=== PATIENT | male | born 1970 | race Two or more races ===

== ENCOUNTER 2016-07-25 18:38 | Emergency (ER) | payer MEDICARE, OTHER ==
[~2016-07-25] VITALS: Ht 185.4 cm; Wt 124.7 kg
[~2016-07-25 18:38] MED LIST: APRESOLINE50 MG ORAL; BACTRIM-DS1 EA ORAL; CATAPRES-TTS-31 EA TDERMAL; COZAAR50 MG ORAL; CYCLOBENZAPRINE10 MG ORAL; DIFLUCAN100 MG ORAL; IBUPROFEN600 MG ORAL; NAPROSYN500 M1 ORAL; NKM; NORCO 5-325 TA1 EAC1 ORAL; NORCO 5-325 TA1 EACH ORAL; NORVASC5 MG ORAL; NYSTATIN100000 UN1 ORAL; PHENERGAN SUPP25 MG RECTAL; RANITIDINE HCL150 MG ORAL; ZOFRAN ODT4 MG ORAL
--- NOTE | 2016-07-25 19:01 | Emergency Room Report ---
History of Present Illness General Chief Complaint: Back Pain-No Injury Source: Patient Present Illness HPI The patient is a 45-year-old male with a stated history of sciatica presenting for right lower back pain which radiates down the right leg. The patient states that the pain became much worse today his prior for no known reason. Pain is described as a 9/10 dull ache the pain is worse with walking and bending over. He denies any numbness or tingling. The patient states that he took Motrin and Robaxin which was given to his friend but this has not helped. He denies doing anything that may have provoked this. He denies any other symptoms including nausea, vomiting, fever, chills, chest pain, shortness of breath, abdominal pain, dysuria Allergies: Coded Allergies: No Known Allergies (Unverified , 08/19/13) Patient History Past Medical History: see triage record Pertinent Family History: none Reviewed Nursing Documentation: PMH: Agreed, PSxH: Agreed Nursing Documentation-PMH Hx Cancer: No Hx Gastrointestinal Problems: No Hx Neurological Problems: No Hx Seizures: Yes Review of Systems All Other Systems: negative except mentioned in HPI Physical Exam Vital Signs Date Time Temp Pulse Resp B/P Pulse Ox O2 Delivery O2 Flow Rate FiO2 07/25/16 18:55 97.9 61 16 143/84 99 Room Air Sp02 EP Interpretation: reviewed, normal General Appearance: no apparent distress, alert, GCS 15, non-toxic Head: normocephalic, atraumatic Eyes: bilateral eye PERRL, bilateral eye normal inspection ENT: hearing grossly normal, normal pharynx, no angioedema, normal voice Musculoskeletal: back normal, gait/station normal, normal range of motion, no calf tenderness, tender - R lower back paraspinous muscles and R mid buttock Neurologic: alert, oriented x3, responsive, motor strength/tone normal, sensory intact, normal gait, speech normal Psychiatric: judgement/insight normal, memory normal, mood/affect normal, no suicidal/homicidal ideation Skin: normal color, no rash, warm/dry, well hydrated Lymphatic: no adenopathy Medical Decision Making PA Attestation Dr Truong is my supervising physician. Patient management was discussed with my supervising physician Diagnostic Impression: Primary Impression: Back pain with right-sided radiculopathy ER Course The patient is a 45-year-old male presenting with right lower back pain with radiation down the right leg Differential diagnosis is considered but not limited to: Sciatica, disc herniation, muscle strain, pain medication seeking behavior, among others Physical exam: Vitals are unremarkable. No apparent distress There is tenderness to palpation over the right lumbar paraspinous muscles and right mid buttock. Normal gait. Sensation is intact. No obvious deformity CURES shows no reports The patient is given Toradol IM and [place] and states a slight improvement in pain. The patient discharged home with a prescription for Motrin and [place] for severe pain. He is given instructions to rest and seek referral for physical therapy. ER precautions are given Last Vital Signs Date Time Temp Pulse Resp B/P Pulse Ox O2 Delivery O2 Flow Rate FiO2 07/25/16 18:55 97.9 61 16 143/84 99 Room Air Status: improved Disposition: HOME, SELF-CARE Condition: Improved Scripts Hydrocodone Bit/Acetaminophen 5-325* (NORCO 5-325 TABLET*) 1 Each Tablet 1 TAB ORAL Q6HR Y for For Pain, #15 TAB Prov: RODRIGO SÁNCHEZ P.Galindo 07/25/16 Ibuprofen* (MOTRIN*) 600 Mg Tablet 600 MG ORAL Q6H Y for For Pain, #30 TAB Prov: RODRIGO SÁNCHEZ P.A. 07/25/16 RODRIGO SÁNCHEZ July 25, 2016 19:01
[2016-07-25] MEDS ORDERED: Norco 5mg/325mg tab ORAL ONE ×2 (19:15→19:30)
[2016-07-25] MEDS ORDERED: Ketorolac 30mg Inj IM ONE (19:15)
[2016-07-25] MEDS ORDERED: NORCO 5-325 TA1 EAC1 ORAL (20:15)
[2016-07-25] MEDS ORDERED: IBUPROFEN600 MG ORAL (20:15)
[2016-07-25 20:20] VITALS: BP 143/84
== END 2016-07-25 20:50 | disposition home or self-care (01) ==
LOC: EMR 19:20
DX: M54.41 Lumbago with sciatica, right side (principal)
CPT/HCPCS: 96372; 99284; J1885

== ENCOUNTER 2016-11-07 12:58 | Emergency (ER) | payer MEDICARE, OTHER ==
[~2016-11-07] VITALS: Ht 185.4 cm; Wt 124.7 kg
--- NOTE | 2016-11-07 13:17 | Emergency Room Report ---
History of Present Illness General Chief Complaint: Pain Present Illness HPI 46 YO Male presents to the ED c/O 11/20 pain on the right lower back that radiates down into the right gluteal area and down the posterior right thigh. pt. states intermittent exacerbations where the pain shoots down into the foot with tingling sensation in the lateral two digits of the right foot. pt. denies trauma or fall. pt. reports hx of similar symptoms in the past that last several weeks then resolve. Pt. states he has not followed up with a pcp because his symptoms end up resolving completely for several months. pt. denies fevers, chills, recent spinal procedures, or history of neoplastic disease. Pt has HTN , and hx of AVm in 2008. denies CLAY, imbalance, weakness, or changes to cognition. Denies loss of sensation or gross motor movements of the extremities , incontinence of bowel or bladder. Denies CP, Palpitations, LOC, AMS, dizziness , Changes in Vision, Sensation, paresthesias, or a sudden severe headache. Allergies: Coded Allergies: No Known Allergies (Unverified , 08/19/13) Patient History Past Medical History: see triage record Past Surgical History: none Pertinent Family History: none Reviewed Nursing Documentation: PMH: Agreed, PSxH: Agreed Nursing Documentation-PMH Hx Cancer: No Hx Gastrointestinal Problems: No Hx Neurological Problems: No Hx Seizures: Yes Review of Systems All Other Systems: negative except mentioned in HPI Physical Exam Vital Signs Date Time Temp Pulse Resp B/P (MAP) Pulse Ox O2 Delivery O2 Flow Rate FiO2 11/07/16 13:03 97.9 112 18 157/114 95 Sp02 EP Interpretation: reviewed, normal General Appearance: no apparent distress, alert, GCS 15, non-toxic Head: normocephalic, atraumatic Eyes: bilateral eye normal inspection, bilateral eye PERRL ENT: hearing grossly normal, normal voice Neck: full range of motion Respiratory: lungs clear, normal breath sounds, speaking full sentences Cardiovascular #1: regular rate, rhythm, tachycardia - 112 BPM Gastrointestinal: non tender, soft, no guarding, no pulsatile mass, no rebound Rectal: deferred Genitourinary: normal inspection, no CVA tenderness Musculoskeletal: back normal, gait/station normal, normal range of motion, tender - TTP to the Right Paraspinal lumbar musculature, the right gluteal musculature and the right posterior thigh. Neurologic: alert, oriented x3, responsive, motor strength/tone normal, sensory intact, cerebellar normal, normal gait, speech normal, other - pain with straight leg raise. Psychiatric: judgement/insight normal, memory normal, mood/affect normal Skin: normal color, no rash, warm/dry, well hydrated, other - no erythema, no swelling, no increased LINDA Medical Decision Making PA Attestation Dr. Baker is my supervising Physician whom patient management has been discussed with. Diagnostic Impression: Primary Impression: Back pain with right-sided radiculopathy ER Course 46 YO Male presents to the ED c/O 11/20 pain on the right lower back that radiates down into the right gluteal area and down the posterior right thigh. pt. states intermittent exacerbations where the pain shoots down into the foot with tingling sensation in the lateral two digits of the right foot. pt. denies trauma or fall. pt. reports hx of similar symptoms in the past that last several weeks then resolve. Pt. states he has not followed up with a pcp because his symptoms end up resolving completely for several months. pt. denies fevers, chills, recent spinal procedures, or history of neoplastic disease. Pt has HTN , and hx of AVm in 2008. denies CLAY, imbalance, weakness, or changes to cognition. Denies loss of sensation or gross motor movements of the extremities , incontinence of bowel or bladder. Denies CP, Palpitations, LOC, AMS, dizziness , Changes in Vision, Sensation, paresthesias, or a sudden severe headache. -Pt. reports previous X-rays at [facility] Sp[facility] were WNL. Ddx considered but are not limited to Fracture, dislocation, contusion, epidural abscess, Sprain/Strain/Spasm Vital signs: are WNL, pt. is afebrile H&PE are most consistent with sciatica, and right sided radiculopathy Pt. has pain with straight leg raise. ORDERS: X-ray not required at this time, no spinous process tenderness- pain is located on the right paraspinal musculature. ED INTERVENTIONS: -IM Toradol 15mg. -Soma 350mg Re-Evaluation: pt. states his pain has subsided with ED interventions, he continues to have some tingling in the toes of the right foot. BP has reduced after treatment of pain. I do not suspect an emergent condition at this time. with current presentation pt. is stable for close outpatient follow up. D/w pt. to return to ED with worsening or new symptoms. -D/w pt. importance of PMD follow up and further evaluation as he continues to have recurrent episodes, may require MRI. DISCHARGE: At this time pt. is stable for d/c to home. Will provide printed patient care instructions, and any necessary prescriptions. Care plan and follow up instructions have been discussed with the patient prior to discharge. Last Vital Signs Date Time Temp Pulse Resp B/P (MAP) Pulse Ox O2 Delivery O2 Flow Rate FiO2 11/07/16 13:03 97.9 112 18 157/114 95 Disposition: HOME, SELF-CARE Condition: Stable Scripts Ibuprofen* (MOTRIN*) 600 Mg Tablet 600 MG ORAL THREE TIMES A DAY, #20 TAB 0 Refills Prov: Iliana Moreland 11/07/16 Cyclobenzaprine Hcl* (FLEXERIL*) 10 Mg Tablet 10 MG ORAL THREE TIMES A DAY for 7 Days, #21 TAB Prov: Iliana Moreland 11/07/16 Departure Forms: Return to Work Return to Work Date: Nov 11, 2016 Work Restrictions: No Heavy Lifting, No Prolonged Standing Other Restrictions: light duty x 1 week. Return to Full Activity: Nov 18, 2016 Patient Instructions: Lumbosacral Radiculopathy, Sciatica Additional Instructions: Take medications as directed. Follow up with a Primary Care Provider in 3-5 days, even if your symptoms have resolved. --Please review list of primary care clinics, if you do not already have a primary care provider Return sooner to ED if new symptoms occur, or current symptoms become worse. Do not drink alcohol, drive, or operate heavy machinery while taking [ ] as this may cause drowsiness. - Please note that this Emergency Department Report was dictated using [employer]ualt[employer] refinisher technology software, occasionally this can lead to erroneous entry secondary to interpretation by the dictation equipment. Iliana Moreland Nov 07, 2016 13:17
[2016-11-07 13:24] VITALS: BP 157/114
[2016-11-07] MEDS ORDERED: Ketorolac 60mg Inj IM ONE (13:30)
[2016-11-07] MEDS ORDERED: GABAPENTIN400 MG ORAL (13:33)
[2016-11-07] MEDS ORDERED: KEPPRA500 M4 ORAL (13:33)
[2016-11-07 13:48] VITALS: BP 157/91
[2016-11-07] MEDS ORDERED: CYCLOBENZAPRINE10 MG ORAL (14:08)
[2016-11-07] MEDS ORDERED: IBUPROFEN600 MG ORAL (14:08)
[2016-11-07 14:10] VITALS: BP 136/85
[2016-11-07 14:17] VITALS: BP 136/85
== END 2016-11-07 14:17 | disposition home or self-care (01) ==
LOC: EMR 13:21
DX: M54.10 Radiculopathy, site unspecified (principal); M54.9 Dorsalgia, unspecified; I10 Essential (primary) hypertension
CPT/HCPCS: 96372; 99284

== ENCOUNTER 2016-11-13 19:32 | Emergency (ER) | payer MEDICARE, OTHER ==
[~2016-11-13] VITALS: Ht 185.4 cm; Wt 122.5 kg
[~2016-11-13 19:32] MED LIST changes: +GABAPENTIN400 MG ORAL; +KEPPRA500 M4 ORAL
[2016-11-13 19:45] VITALS: BP 174/100
--- NOTE | 2016-11-13 20:18 | Emergency Room Report ---
History of Present Illness General Chief Complaint: Vomiting Source: Patient Present Illness HPI 46-year-old male no significant past medical history presenting with epigastric pain for one day. Patient states that he has had nausea vomiting and diarrhea, 15 episodes of nonbilious nonbloody vomiting as well as more than 5 episodes of watery diarrhea. This is associated with burning epigastric pain, constant, no relieving or exacerbating factors. Denies any fever or chills. Denies any abdominal surgeries. Patient states that he is a chronic marijuana use or. States that he has had nausea and vomiting about 5 times in the past secondary to marijuana use Allergies: Coded Allergies: MORPHINE (Verified Allergy, Unknown, 11/13/16) Patient History Past Medical History: see triage record Past Surgical History: none Pertinent Family History: none Reviewed Nursing Documentation: PMH: Agreed, PSxH: Agreed Nursing Documentation-PMH Hx Cancer: No Hx Gastrointestinal Problems: No Hx Neurological Problems: No Hx Seizures: Yes Review of Systems All Other Systems: negative except mentioned in HPI Physical Exam Vital Signs Date Time Temp Pulse Resp B/P (MAP) Pulse Ox O2 Delivery O2 Flow Rate FiO2 11/13/16 19:37 98.1 62 20 198/95 99 Room Air Sp02 EP Interpretation: reviewed, normal General Appearance: alert, GCS 15, non-toxic, moderate distress Head: normocephalic, atraumatic Eyes: bilateral eye normal inspection, bilateral eye PERRL, bilateral eye EOMI ENT: normal ENT inspection, normal pharynx, normal voice, moist mucus membranes Neck: normal inspection, full range of motion, supple Respiratory: normal inspection, lungs clear, normal breath sounds, no respiratory distress, no retraction, no wheezing, speaking full sentences, chest symmetrical Cardiovascular #1: normal inspection, regular rate, rhythm, no edema, normal capillary refill Cardiovascular #2: 2+ radial (R), 2+ radial (L) Gastrointestinal: no guarding, other - Mild epigastric tenderness, no rebound tenderness, no guarding, nontender all other quadrants, Hook sign is negative Genitourinary: no CVA tenderness Musculoskeletal: normal inspection, back normal, normal range of motion, non- tender Neurologic: normal inspection, alert, oriented x3, responsive, motor strength/ tone normal, sensory intact, normal gait, speech normal Psychiatric: normal inspection, judgement/insight normal, memory normal Skin: normal inspection, normal color, no rash, warm/dry, well hydrated, normal turgor Medical Decision Making Diagnostic Impression: Primary Impression: Epigastric pain Additional Impression: Nausea vomiting and diarrhea ER Course 46 yo M with abdominal pain one day Differential Diagnosis: Gastritis, gastroenteritis, cholecystitis, appendicitis, diverticulitis, SBO, mesenteric ischemia, cardiac, UTI/pyelo At this time abdomen is soft nontender, not likely to have acute intra- abdominal surgical pathology, will hold CT for now. History and physical more likely to be gastritis or gastroenteritis, possibly secondary to marijuana use Plan: Basic labs Pepcid, maalox, pain control, IVF ER course HD stable during ED stay repeat abd exam, benign no furhter episodes vomiting pt feels better with meds/fluids Disposition: Patient will be discharged to home. Strict return precautions discussed the patient such as severe or persistent pain, intractable nausea or vomiting, black or bloody stools. Otherwise patient is told to followup with his primary care DrDeb within 3 days. Patient is also told to followup with a lacrosse player within one week. Please note that this Emergency Department Report was dictated using [employer]com[employer] car mechanic technology software, occasionally this can lead to erroneous entry secondary to interpretation by the dictation equipment Laboratory Tests Test 11/13/16 19:55 White Blood Count 12.7 K/UL (4.8-10.8) H Red Blood Count 4.78 M/UL (4.70-6.10) Hemoglobin 14.4 G/DL (14.2-18.0) Hematocrit 40.1 % (42.0-52.0) L Mean Corpuscular Volume 84 FL (80-99) Mean Corpuscular Hemoglobin 30.0 PG (27.0-31.0) Mean Corpuscular Hemoglobin Concent 35.8 G/DL (32.0-36.0) Red Cell Distribution Width 11.7 % (11.6-14.8) Platelet Count 236 K/UL (150-450) Mean Platelet Volume 8.1 FL (6.5-10.1) Neutrophils (%) (Auto) % (45.0-75.0) Lymphocytes (%) (Auto) % (20.0-45.0) Monocytes (%) (Auto) % (1.0-10.0) Eosinophils (%) (Auto) % (0.0-3.0) Basophils (%) (Auto) % (0.0-2.0) Differential Total Cells Counted 100 Neutrophils % (Manual) 84 % (45-75) H Lymphocytes % (Manual) 14 % (20-45) L Monocytes % (Manual) 0 % (1-10) L Eosinophils % (Manual) 0 % (0-3) Basophils % (Manual) 0 % (0-2) Band Neutrophils 2 % (0-8) Platelet Estimate Adequate Platelet Morphology Normal Red Blood Cell Morphology Normal Sodium Level 145 mEQ/L (135-145) Potassium Level 3.6 mEQ/L (3.4-4.9) Chloride Level 103 mEQ/L (98-107) Carbon Dioxide Level 22 mEQ/L (20-30) Anion Gap 20 (5-15) H Blood Urea Nitrogen 13 mg/dL (7-23) Creatinine 1.1 mg/dL (0.7-1.2) Estimate Glomerular Filtration Rate > 60 mL/min (>60) Glucose Level 185 mg/dL (74-106) H Calcium Level 9.6 mg/dL (8.6-10.2) Total Bilirubin 0.5 mg/dL (0.0-1.2) Aspartate Amino Transferase (AST) 23 U/L (5-40) Alanine Aminotransferase (ALT) 42 U/L (3-41) H Alkaline Phosphatase 104 U/L (40-129) Total Protein 8.0 g/dL (6.6-8.7) Albumin 5.0 g/dL (3.5-5.2) Globulin 3.0 g/dL Albumin/Globulin Ratio 1.6 (1.0-2.7) Lipase 25 U/L (< 60) Rhythm Strip Diag. Results EP Interpretation: yes Rate: 69 Rhythm: NSR, no PVC's, no ectopy Last Vital Signs Date Time Temp Pulse Resp B/P (MAP) Pulse Ox O2 Delivery O2 Flow Rate FiO2 11/13/16 19:37 98.1 62 20 198/95 99 Room Air Disposition: HOME, SELF-CARE Condition: Improved Scripts Famotidine (PEPCID) 40 Mg Tablet 40 MG PO QHS, #7 TAB 0 Refills Prov: Sera Baumann M.D. 11/13/16 Sera Baumann M.D. Nov 13, 2016 20:18
[2016-11-13 20:26] LABS: MEAN CORPUSCULAR HGB CONC 35.8 G/DL (32.0-36.0); MEAN CORPUSCULAR VOLUME 84 FL (80-99); MEAN PLATELET VOLUME 8.1 FL (6.5-10.1); PLATELET COUNT 236 K/UL (150-450); RED BLOOD COUNT 4.78 M/UL (4.70-6.10); RED CELL DISTRIBUTION WIDTH 11.7 % (11.6-14.8); WHITE BLOOD COUNT 12.7 K/UL (4.8-10.8)
[2016-11-13] MEDS ORDERED: Mylanta II UD 30ml ORAL ONE (20:30)
[2016-11-13] MEDS ORDERED: Famotidine 20 MG/ 2ML VIAL IVP ONE (20:30)
[2016-11-13] MEDS ORDERED: Dicyclomine HCl 10mg/5ml oral soln ORAL ONE (20:30)
[2016-11-13] MEDS ORDERED: Lidocaine 2% Visc 15ml soln ORAL ONE (20:30)
[2016-11-13 20:48] LABS: ALANINE AMINOTRANSFERASE 42 U/L (3-41); ALBUMIN/GLOBULIN RATIO 1.6 (1.0-2.7); ANION GAP 20 (5-15); ASPARTATE AMINO TRANSFERASE 23 U/L (5-40); CALCIUM 9.6 mg/dL (8.6-10.2); CARBON DIOXIDE 22 mEQ/L (20-30); CHLORIDE 103 mEQ/L (98-107); CREATININE 1.1 mg/dL (0.7-1.2); GLOMERULAR FILTRATION RATE > 60 mL/min (>60); HEMOLYSIS 50; LIPASE 25 U/L (< 60); POTASSIUM 3.6 mEQ/L (3.4-4.9); SODIUM 145 mEQ/L (135-145)
[2016-11-13 21:03] LABS: BAND NEUTROPHILS % (MANUAL) 2 % (0-8); LYMPHOCYTES % (MANUAL) 14 % (20-45); NEUTROPHILS % (MANUAL) 84 % (45-75); PLATELET MORPHOLOGY NORMAL; TOTAL CELLS COUNTED 100
[2016-11-13 21:04] LABS: BASOPHILS % (MANUAL) 0 % (0-2); EOSINOPHILS % (MANUAL) 0 % (0-3); PLATELET ESTIMATE ADEQUATE
[2016-11-13] MEDS ORDERED: PEPCID40 MG PO (21:51)
[2016-11-13 22:05] VITALS: BP 137/83
[2016-11-13 22:07] VITALS: BP 137/83
== END 2016-11-13 22:07 | disposition home or self-care (01) ==
LOC: EMR 20:10
DX: R10.13 Epigastric pain (principal); R11.2 Nausea with vomiting, unspecified; R19.7 Diarrhea, unspecified; Z88.6 Allergy status to analgesic agent
CPT/HCPCS: 36415; 80053; 82962; 83690; 85007; 85025; 96374; 96375; 99284; J2405; S0028

== ENCOUNTER 2018-05-23 17:29 | Inpatient (IN) | payer MEDICARE, OTHER ==
[~2018-05-23] VITALS: Ht 185.4 cm; Wt 124.7 kg
[~2018-05-23 17:29] MED LIST changes: +PEPCID40 MG PO
--- NOTE | 2018-05-23 17:52 | Emergency Room Report ---
History of Present Illness General Chief Complaint: Vomiting Source: Patient, Medical Record Present Illness HPI Patient presents with complaints of vomiting and diarrhea Reports that on Monday he had Prydeinig food since then he has had chills with hot and fever type episodes Vomited several times Denies any diarrhea denies any chest pain or short of breath Also has increased burning and epigastric and mid esophageal area Denies any recent travel denies any other trauma patient's family member also had similar food however does not have any symptoms Allergies: Coded Allergies: MORPHINE (Verified Allergy, Unknown, 11/13/16) Patient History Past Medical History: see triage record Pertinent Family History: none Reviewed Nursing Documentation: PMH: Agreed; PSxH: Agreed Nursing Documentation-PMH Past Medical History: No History, Except For Hx Cancer: No Hx Gastrointestinal Problems: No Hx Neurological Problems: No Hx Seizures: Yes Review of Systems All Other Systems: negative except mentioned in HPI Physical Exam Vital Signs Date Time Temp Pulse Resp B/P (MAP) Pulse Ox O2 Delivery O2 Flow Rate FiO2 05/23/18 17:33 98.2 104 18 143/82 96 Room Air Sp02 EP Interpretation: reviewed, normal General Appearance: well appearing, no apparent distress Head: normocephalic, atraumatic Eyes: bilateral eye PERRL, bilateral eye EOMI ENT: hearing grossly normal, normal pharynx, TMs + canals normal, uvula midline Neck: full range of motion, supple, no meningismus, no bony tend Respiratory: lungs clear, normal breath sounds, no rhonchi, no respiratory distress, no retraction, no accessory muscle use Cardiovascular #1: normal peripheral pulses, regular rate, rhythm, no edema, no gallop, no JVD, no murmur Gastrointestinal: normal bowel sounds, non tender, soft, no mass, no organomegaly, non-distended, no guarding, no hernia, no pulsatile mass, no rebound Genitourinary: no CVA tenderness Musculoskeletal: normal inspection Neurologic: oriented x3, responsive, self sealing fuel tank repairer III-XII nml as tested, motor strength/ tone normal, sensory intact Psychiatric: mood/affect normal Skin: normal color, no rash, warm/dry, palpation normal Lymphatic: normal inspection, no adenopathy Medical Decision Making Diagnostic Impression: Primary Impression: Vomiting Additional Impressions: Abdominal pain Leukocytosis ER Course With the history exam and presentation, multiple differentials considered, including but not limited to appendicitis, gastritis, cholecystitis, diverticulitis Patient had done somewhat better however again becomes nauseated Patient's white blood cell count is elevated Patient has had marijuana abuse in the past with leukocytosis Further CT imaging was not obtained as the patient's abdomen remains soft However given the elevated white blood cell count and the patient's discomfort he was admitted for further inpatient care Labs Test 05/23/18 18:15 05/23/18 19:40 05/24/18 06:26 05/25/18 06:00 White Blood Count 19.0 K/UL (4.8-10.8) 12.7 K/UL (4.8-10.8) 11.9 K/UL (4.8-10.8) Red Blood Count 5.52 M/UL (4.70-6.10) 5.39 M/UL (4.70-6.10) 5.15 M/UL (4.70-6.10) Hemoglobin 16.0 G/DL (14.2-18.0) 15.5 G/DL (14.2-18.0) 14.8 G/DL (14.2-18.0) Hematocrit 47.3 % (42.0-52.0) 45.9 % (42.0-52.0) 43.7 % (42.0-52.0) Mean Corpuscular Volume 86 FL (80-99) 85 FL (80-99) 85 FL (80-99) Mean Corpuscular Hemoglobin 29.0 PG (27.0-31.0) 28.7 PG (27.0-31.0) 28.8 PG (27.0-31.0) Mean Corpuscular Hemoglobin Concent 33.9 G/DL (32.0-36.0) 33.7 G/DL (32.0-36.0) 34.0 G/DL (32.0-36.0) Red Cell Distribution Width 11.8 % (11.6-14.8) 12.2 % (11.6-14.8) 11.8 % (11.6-14.8) Platelet Count 221 K/UL (150-450) 174 K/UL (150-450) 189 K/UL (150-450) Mean Platelet Volume 8.9 FL (6.5-10.1) 8.8 FL (6.5-10.1) 9.7 FL (6.5-10.1) Neutrophils (%) (Auto) % (45.0-75.0) 64.6 % (45.0-75.0) 54.5 % (45.0-75.0) Lymphocytes (%) (Auto) % (20.0-45.0) 24.6 % (20.0-45.0) 34.7 % (20.0-45.0) Monocytes (%) (Auto) % (1.0-10.0) 9.5 % (1.0-10.0) 8.9 % (1.0-10.0) Eosinophils (%) (Auto) % (0.0-3.0) 0.1 % (0.0-3.0) 0.8 % (0.0-3.0) Basophils (%) (Auto) % (0.0-2.0) 1.2 % (0.0-2.0) 1.2 % (0.0-2.0) Differential Total Cells Counted 100 Neutrophils % (Manual) 83 % (45-75) Lymphocytes % (Manual) 10 % (20-45) Monocytes % (Manual) 7 % (1-10) Eosinophils % (Manual) 0 % (0-3) Basophils % (Manual) 0 % (0-2) Band Neutrophils 0 % (0-8) Reactive Lymphocytes 2+ Platelet Estimate Adequate Platelet Morphology Normal Polychromasia 1+ Anisocytosis 1+ Sodium Level 140 MMOL/L (136-145) 136 MMOL/L (136-145) 140 MMOL/L (136-145) Potassium Level 2.8 MMOL/L (3.5-5.1) 3.1 MMOL/L (3.5-5.1) 3.5 MMOL/L (3.5-5.1) Chloride Level 96 MMOL/L (98-107) 101 MMOL/L (98-107) 105 MMOL/L (98-107) Carbon Dioxide Level 31 MMOL/L (21-32) 27 MMOL/L (21-32) 30 MMOL/L (21-32) Anion Gap 13 mmol/L (5-15) 8 mmol/L (5-15) 5 mmol/L (5-15) Blood Urea Nitrogen 18 mg/dL (7-18) 17 mg/dL (7-18) 11 mg/dL (7-18) Creatinine 1.4 MG/DL (0.55-1.30) 1.4 MG/DL (0.55-1.30) 1.2 MG/DL (0.55-1.30) Estimat Glomerular Filtration Rate > 60 mL/min (>60) > 60 mL/min (>60) > 60 mL/min (>60) Glucose Level 119 MG/DL (74-106) 159 MG/DL (74-106) 106 MG/DL (74-106) Calcium Level 9.4 MG/DL (8.5-10.1) 8.3 MG/DL (8.5-10.1) 8.4 MG/DL (8.5-10.1) Total Bilirubin 0.8 MG/DL (0.2-1.0) 0.7 MG/DL (0.2-1.0) 0.6 MG/DL (0.2-1.0) Aspartate Amino Transf (AST/SGOT) 29 U/L (15-37) 26 U/L (15-37) 16 U/L (15-37) Alanine Aminotransferase (ALT/SGPT) 59 U/L (12-78) 48 U/L (12-78) 39 U/L (12-78) Alkaline Phosphatase 107 U/L (46-116) 91 U/L (46-116) 89 U/L (46-116) Total Protein 8.0 G/DL (6.4-8.2) 6.8 G/DL (6.4-8.2) 6.3 G/DL (6.4-8.2) Albumin 4.3 G/DL (3.4-5.0) 3.4 G/DL (3.4-5.0) 3.3 G/DL (3.4-5.0) Globulin 3.7 g/dL 3.4 g/dL 3.0 g/dL Albumin/Globulin Ratio 1.2 (1.0-2.7) 1.0 (1.0-2.7) 1.1 (1.0-2.7) Lipase 139 U/L (73-393) Urine Color Pale yellow Urine Appearance Clear Urine pH 7 (4.5-8.0) Urine Specific [place] 1.010 (1.005-1.035) Urine Protein 2+ (NEGATIVE) Urine Glucose (UA) Negative (NEGATIVE) Urine Ketones 2+ (NEGATIVE) Urine Blood Negative (NEGATIVE) Urine Nitrite Negative (NEGATIVE) Urine Bilirubin Negative (NEGATIVE) Urine Urobilinogen Normal MG/DL (0.0-1.0) Urine Leukocyte Esterase Negative (NEGATIVE) Urine RBC 0-2 /HPF (0 - 0) Urine WBC 0-2 /HPF (0 - 0) Urine Squamous Epithelial Cells None /LPF (NONE/OCC) Urine Bacteria Few /HPF (NONE) Urine Opiates Screen Negative (NEGATIVE) Urine Barbiturates Screen Negative (NEGATIVE) Phencyclidine (PCP) Screen Negative (NEGATIVE) Urine Amphetamines Screen Negative (NEGATIVE) Urine Benzodiazepines Screen Negative (NEGATIVE) Urine Cocaine Screen Negative (NEGATIVE) Urine Marijuana (THC) Screen Positive (NEGATIVE) Phosphorus Level 3.3 MG/DL (2.5-4.9) 3.8 MG/DL (2.5-4.9) Magnesium Level 1.6 MG/DL (1.8-2.4) 2.0 MG/DL (1.8-2.4) C-Reactive Protein, Quantitative < 0.4 mg/dL (0.00-0.90) Hemoglobin A1c 6.1 % (4.3-6.0) Uric Acid 5.5 MG/DL (2.6-7.2) Gamma Glutamyl Transpeptidase 16 U/L (5-85) Pro-B-Type Natriuretic Peptide 17 pg/mL (0-125) Triglycerides Level 60 MG/DL (30-150) Cholesterol Level 152 MG/DL (< 200) LDL Cholesterol 106 mg/dL (<100) HDL Cholesterol 37 MG/DL (40-60) Cholesterol/HDL Ratio 4.1 (3.3-4.4) Thyroid Stimulating Hormone (TSH) 1.443 uiU/mL (0.358-3.740) Last Vital Signs Date Time Temp Pulse Resp B/P (MAP) Pulse Ox O2 Delivery O2 Flow Rate FiO2 05/23/18 17:33 98.2 104 18 143/82 96 Room Air Status: improved Disposition: ADMITTED INPATIENT Condition: Serious Destin Baker DO May 23, 2018 17:52
[2018-05-23 18:00] VITALS: BP 133/82
--- NOTE | 2018-05-23 18:00 | NUR ---
ED Nurse Note: pt walked in to ER c/o abdominal pain 10/20 and N/V/D since monday. pt aao x4, calm and cooperative. skin clean and intact.
[2018-05-23 18:33] LABS: HEMATOCRIT 47.3 % (42.0-52.0); MEAN CORPUSCULAR VOLUME 86 FL (80-99); PLATELET COUNT 221 K/UL (150-450); RED BLOOD COUNT 5.52 M/UL (4.70-6.10); RED CELL DISTRIBUTION WIDTH 11.8 % (11.6-14.8)
[2018-05-23 18:45] LABS: ANION GAP 13 mmol/L (5-15); BLOOD UREA NITROGEN 18 mg/dL (7-18); CALCIUM 9.4 MG/DL (8.5-10.1); CARBON DIOXIDE 31 MMOL/L (21-32); CHLORIDE 96 MMOL/L (98-107); CREATININE 1.4 MG/DL (0.55-1.30); POTASSIUM 2.8 MMOL/L (3.5-5.1); SODIUM 140 MMOL/L (136-145)
[2018-05-23 18:49] LABS: ALANINE AMINOTRANSFERASE 59 U/L (12-78); ALBUMIN 4.3 G/DL (3.4-5.0); ALBUMIN/GLOBULIN RATIO 1.2 (1.0-2.7); ALKALINE PHOSPHATASE 107 U/L (46-116); ASPARTATE AMINO TRANSFERASE 29 U/L (15-37); BILIRUBIN,TOTAL 0.8 MG/DL (0.2-1.0)
--- NOTE | 2018-05-23 19:10 | NUR ---
ED Nurse Note: Received pt and report from day shift. Knowing Pt will admit and needs to collect urine. Will prepare as soon.
--- NOTE | 2018-05-23 19:17 | NUR ---
HAND-OFF: Report given to ALEXANDRIA Quiroz. pt was told to urinate in urinal. IV ATB won't initiate until urine sample obtained. pt verbalized understanding.
[2018-05-23] MEDS ORDERED: Lidocaine 2% Visc 15ml soln ORAL ONE (19:45)
[2018-05-23] MEDS ORDERED: Mylanta II UD 30ml ORAL ONE (19:45)
[2018-05-23] MEDS ORDERED: Dicyclomine HCl 10mg/5ml oral soln ORAL ONE (19:45)
[2018-05-23 19:51] LABS: APPEARANCE,URINE CLEAR; BILIRUBIN, URINE NEGATIVE (NEGATIVE); COLOR,URINE PALE YELLOW; GLUCOSE, URINE (UA) NEGATIVE (NEGATIVE); KETONES,URINE 2+ (NEGATIVE); LEUKOCYTE ESTERASE ,URINE NEGATIVE (NEGATIVE); NITRITE,URINE NEGATIVE (NEGATIVE); PH,URINE 7 (4.5-8.0); PROTEIN,URINE 2+ (NEGATIVE); UROBILINOGEN,URINE NORMAL MG/DL (0.0-1.0)
[2018-05-23 21:30] VITALS: BP 127/78
--- NOTE | 2018-05-23 21:32 | NUR ---
ED Nurse Note: Pt admit to 3E room 314-2. Report and belongings given to ALEXANDRIA Lopez. Pt is AO x 4times, VSS, on room air no distress.
--- NOTE | 2018-05-23 21:40 | NUR ---
NURSE NOTES: Received pt from [place] via [facility], pt ambulated from [email or web address] to bed with unsteady gait uses cane to ambulate. Pt is AOX4, c/o abdominal pain 5/10, denies any nausea or vomiting at this time. Admit pt to floor. Safety measures maintained. Bed in lowest position, locked and side rails up x 2 and padded, call light within reach. Will continue to monitor.
--- NOTE | 2018-05-23 22:20 | NUR ---
NURSE NOTES: Paged business control manager for Dr. Ramirez, awaiting for call back.
--- NOTE | 2018-05-23 23:00 | NUR ---
NURSE NOTES: Dr. Anderson entered admission orders. Will carry out orders.
[2018-05-24] VITALS: BP 121/72
[2018-05-24] MEDS: D5 1/2NS w/KCl 20mEq 1,000 ML IV SCH ×2 (00:02→09:03)
[2018-05-24 06:00] VITALS: BP 141/78
--- NOTE | 2018-05-24 07:29 | NUR ---
HAND-OFF: Report given to ALEXANDRIA Oneill. Pt in stable condition.
--- NOTE | 2018-05-24 07:30 | NUR ---
NURSE NOTES: WALKING ROUNDS DONE WITH OUTGOING RN. PATIENT AWAKE IN BED. QUESTIONS ANSWERED. NEEDS MET AT THIS TIME.DISCUSSED PLAN OF CARE FOR THE DAY.VERBALIZED UNDERSTANDING. DENIES NAUSEA. CALL LIGHT WITHIN REACH.BED IN LOW AND LOCKED POSITION.
[2018-05-24 07:41] LABS: BASOPHILS % (AUTO) 1.2 % (0.0-2.0); EOSINOPHILS % (AUTO) 0.1 % (0.0-3.0); HEMATOCRIT 45.9 % (42.0-52.0); HEMOGLOBIN 15.5 G/DL (14.2-18.0); LYMPHOCYTES % (AUTO) 24.6 % (20.0-45.0); MEAN CORPUSCULAR VOLUME 85 FL (80-99); MONOCYTES % (AUTO) 9.5 % (1.0-10.0); NEUTROPHILS % (AUTO) 64.6 % (45.0-75.0); PLATELET COUNT 174 K/UL (150-450); RED BLOOD COUNT 5.39 M/UL (4.70-6.10); RED CELL DISTRIBUTION WIDTH 12.2 % (11.6-14.8); WHITE BLOOD COUNT 12.7 K/UL (4.8-10.8)
[2018-05-24 07:47] LABS: ALANINE AMINOTRANSFERASE 48 U/L (12-78); ALBUMIN 3.4 G/DL (3.4-5.0); ALKALINE PHOSPHATASE 91 U/L (46-116); ANION GAP 8 mmol/L (5-15); ASPARTATE AMINO TRANSFERASE 26 U/L (15-37); BILIRUBIN,TOTAL 0.7 MG/DL (0.2-1.0); BLOOD UREA NITROGEN 17 mg/dL (7-18); CALCIUM 8.3 MG/DL (8.5-10.1); CARBON DIOXIDE 27 MMOL/L (21-32); CHLORIDE 101 MMOL/L (98-107); CREATININE 1.4 MG/DL (0.55-1.30); POTASSIUM 3.1 MMOL/L (3.5-5.1); SODIUM 136 MMOL/L (136-145)
[2018-05-24 08:00] VITALS: BP 136/76
--- NOTE | 2018-05-24 08:41 | History and Physical ---
History of Present Illness General Date patient seen: May 24, 2018 Reason for Hospitalization: Vomiting Present Illness HPI 47 year old male with PMH of HTn, epilepsy presented with complaints of nausea, vomiting and diarrhea x 3 day, states he are sinhal[place] food on monday and soon after developed chills fevers and vomiting. Denies and sick contacts or recent travel, fever has resolved. Allergies: Coded Allergies: MORPHINE (Verified Allergy, Unknown, 11/13/16) Medication History Scheduled Amlodipine Besylate (Norvasc), 10 MG ORAL DAILY Clonidine HCl (Catapres-Tts 3), 1 PATCH TDERMAL QWEEK Cyclobenzaprine Hcl* (Flexeril*), 10 MG ORAL THREE TIMES A DAY Famotidine (Pepcid), 40 MG PO QHS Fluconazole* (Diflucan*), 200 MG ORAL DAILY Gabapentin* (Gabapentin*), Unknown Dose ORAL TWICE A DAY, (Reported) Hydralazine HCl (Hydralazine HCl), 100 MG ORAL Q12HR Ibuprofen* (Motrin*), 600 MG ORAL THREE TIMES A DAY Levetiracetam (Keppra), Unknown Dose ORAL EVERY 12 HOURS, (Reported) Losartan Potassium* (Cozaar*), 100 MG ORAL DAILY Naproxen* (Naprosyn*), 500 MG ORAL TWICE A DAY Nystatin* (Nystatin*), 5 ML ORAL FOUR TIMES A DAY Ranitidine Hcl* (Zantac*), 150 MG ORAL TWICE A DAY Scheduled PRN Cyclobenzaprine Hcl* (Flexeril*), 10 MG ORAL BID PRN for Muscle Spasm Hydrocodone Bit/Acetaminophen 5-325* ([place] 5-325 Tablet*), 1 TAB ORAL Q6HR PRN for For Pain Hydrocodone Bit/Acetaminophen 5-325* ([place] 5-325*), 1 TAB ORAL Q6H PRN for For Pain Hydrocodone Bit/Acetaminophen 5-325* ([place] 5-325 Tablet*), 1 TAB ORAL Q6HR PRN for For Pain Ibuprofen* (Motrin*), 600 MG ORAL Q6H PRN for For Pain Ondansetron Odt* (Zofran Odt*), 4 MG ORAL Q6H PRN for Nausea & Vomiting Ondansetron Odt* (Zofran Odt*), 4 MG ORAL Q6H PRN for Nausea & Vomiting Ondansetron Odt* (Zofran Odt*), 4 MG ORAL Q6H PRN for Nausea & Vomiting Ondansetron Odt* (Zofran Odt*), 4 MG ORAL Q6H PRN for Nausea & Vomiting Promethazine HCl (Promethegan), 25 MG RECTAL Q6H PRN for Nausea & Vomiting Patient History History Provided By: Patient, Medical Record Healthcare decision maker Resuscitation status Full Code Advanced Directive on File No Review of Systems Constitutional: Reports: no symptoms Eye: Reports: no symptoms ENT: Reports: no symptoms Respiratory: Reports: no symptoms Cardiovascular: Reports: no symptoms Gastrointestinal: Reports: abdominal pain, diarrhea, nausea, vomiting Genitourinary: Reports: no symptoms Musculoskeletal: Reports: no symptoms Skin: Reports: no symptoms Psychiatric: Reports: no symptoms Neurological: Reports: no symptoms Endocrine: Reports: no symptoms Hematologic/Lymphatic: Reports: no symptoms Physical Exam General Appearance: WD/WN, no apparent distress, alert Lines, tubes and drains: peripheral HEENT: normocephalic, atraumatic, anicteric, mucous membranes moist Neck: non-tender, normal alignment, supple Respiratory/Chest: chest wall non-tender, lungs clear, normal breath sounds, no respiratory distress, no accessory muscle use Cardiovascular/Chest: normal peripheral pulses, normal rate, regular rhythm, no gallop/murmur Abdomen: normal bowel sounds, non tender, soft, no organomegaly Extremities: normal range of motion, non-tender, normal inspection, no calf tenderness Skin Exam: normal pigmentation Neurologic: small offset printer II-XII grossly normal Musculoskeletal: normal muscle bulk Last 24 Hour Vital Signs Date Time Temp Pulse Resp B/P (MAP) Pulse Ox O2 Delivery O2 Flow Rate FiO2 05/24/18 08:34 72 136/76 05/24/18 06:00 98.2 73 18 141/78 (99) 96 05/24/18 00:00 98.4 68 18 121/72 (88) 95 05/23/18 21:51 Room Air 05/23/18 21:37 98.0 81 17 127/78 98 Room Air 05/23/18 21:30 98.0 81 17 127/78 98 Room Air 05/23/18 18:00 97 21 Room Air 05/23/18 18:00 98.2 98 18 133/82 96 Room Air 05/23/18 17:33 98.2 104 18 143/82 96 Room Air Intake and Output 05/23/18 05/24/18 19:00 07:00 Intake Total 1000 ml 970 ml Output Total 700 ml Balance 1000 ml 270 ml Intake Oral 0 ml 120 ml IV Total 1000 ml 850 ml Output Urine Total 700 ml Laboratory Tests Test 05/23/18 18:15 05/23/18 19:40 05/24/18 06:26 White Blood Count 19.0 K/UL (4.8-10.8) H 12.7 K/UL (4.8-10.8) H Red Blood Count 5.52 M/UL (4.70-6.10) 5.39 M/UL (4.70-6.10) Hemoglobin 16.0 G/DL (14.2-18.0) 15.5 G/DL (14.2-18.0) Hematocrit 47.3 % (42.0-52.0) 45.9 % (42.0-52.0) Mean Corpuscular Volume 86 FL (80-99) 85 FL (80-99) Mean Corpuscular Hemoglobin 29.0 PG (27.0-31.0) 28.7 PG (27.0-31.0) Mean Corpuscular Hemoglobin Concent 33.9 G/DL (32.0-36.0) 33.7 G/DL (32.0-36.0) Red Cell Distribution Width 11.8 % (11.6-14.8) 12.2 % (11.6-14.8) Platelet Count 221 K/UL (150-450) 174 K/UL (150-450) Mean Platelet Volume 8.9 FL (6.5-10.1) 8.8 FL (6.5-10.1) Neutrophils (%) (Auto) % (45.0-75.0) 64.6 % (45.0-75.0) Lymphocytes (%) (Auto) % (20.0-45.0) 24.6 % (20.0-45.0) Monocytes (%) (Auto) % (1.0-10.0) 9.5 % (1.0-10.0) Eosinophils (%) (Auto) % (0.0-3.0) 0.1 % (0.0-3.0) Basophils (%) (Auto) % (0.0-2.0) 1.2 % (0.0-2.0) Differential Total Cells Counted 100 Neutrophils % (Manual) 83 % (45-75) H Lymphocytes % (Manual) 10 % (20-45) L Monocytes % (Manual) 7 % (1-10) Eosinophils % (Manual) 0 % (0-3) Basophils % (Manual) 0 % (0-2) Band Neutrophils 0 % (0-8) Reactive Lymphocytes 2+ Platelet Estimate Adequate Platelet Morphology Normal Polychromasia 1+ Anisocytosis 1+ Sodium Level 140 MMOL/L (136-145) 136 MMOL/L (136-145) Potassium Level 2.8 MMOL/L (3.5-5.1) L 3.1 MMOL/L (3.5-5.1) L Chloride Level 96 MMOL/L (98-107) L 101 MMOL/L (98-107) Carbon Dioxide Level 31 MMOL/L (21-32) 27 MMOL/L (21-32) Anion Gap 13 mmol/L (5-15) 8 mmol/L (5-15) Blood Urea Nitrogen 18 mg/dL (7-18) 17 mg/dL (7-18) Creatinine 1.4 MG/DL (0.55-1.30) H 1.4 MG/DL (0.55-1.30) H Estimat Glomerular Filtration Rate > 60 mL/min (>60) > 60 mL/min (>60) Glucose Level 119 MG/DL (74-106) H 159 MG/DL (74-106) H Calcium Level 9.4 MG/DL (8.5-10.1) 8.3 MG/DL (8.5-10.1) L Total Bilirubin 0.8 MG/DL (0.2-1.0) 0.7 MG/DL (0.2-1.0) Aspartate Amino Transf (AST/SGOT) 29 U/L (15-37) 26 U/L (15-37) Alanine Aminotransferase (ALT/SGPT) 59 U/L (12-78) 48 U/L (12-78) Alkaline Phosphatase 107 U/L (46-116) 91 U/L (46-116) Total Protein 8.0 G/DL (6.4-8.2) 6.8 G/DL (6.4-8.2) Albumin 4.3 G/DL (3.4-5.0) 3.4 G/DL (3.4-5.0) Globulin 3.7 g/dL 3.4 g/dL Albumin/Globulin Ratio 1.2 (1.0-2.7) 1.0 (1.0-2.7) Lipase 139 U/L (73-393) Urine Color Pale yellow Urine Appearance Clear Urine pH 7 (4.5-8.0) Urine Specific [place] 1.010 (1.005-1.035) Urine Protein 2+ (NEGATIVE) H Urine Glucose (UA) Negative (NEGATIVE) Urine Ketones 2+ (NEGATIVE) H Urine Blood Negative (NEGATIVE) Urine Nitrite Negative (NEGATIVE) Urine Bilirubin Negative (NEGATIVE) Urine Urobilinogen Normal MG/DL (0.0-1.0) Urine Leukocyte Esterase Negative (NEGATIVE) Urine RBC 0-2 /HPF (0 - 0) H Urine WBC 0-2 /HPF (0 - 0) Urine Squamous Epithelial Cells None /LPF (NONE/OCC) Urine Bacteria Few /HPF (NONE) Urine Opiates Screen Negative (NEGATIVE) Urine Barbiturates Screen Negative (NEGATIVE) Phencyclidine (PCP) Screen Negative (NEGATIVE) Urine Amphetamines Screen Negative (NEGATIVE) Urine Benzodiazepines Screen Negative (NEGATIVE) Urine Cocaine Screen Negative (NEGATIVE) Urine Marijuana (THC) Screen Positive (NEGATIVE) H Phosphorus Level 3.3 MG/DL (2.5-4.9) Magnesium Level 1.6 MG/DL (1.8-2.4) L Height (Feet): 6 Height (Inches): 1.00 Weight (Pounds): 275 Medications Current Medications Medications (Trade) Dose Ordered Sig/Purvi Route PRN Reason Start Time Stop Time Status Last Admin Dose Admin Acetaminophen (Tylenol) 650 mg Q4H PRN ORAL Mild Pain (Pain Scale 1-3) 05/23/18 23:15 06/22/18 23:14 05/24/18 05:57 Amlodipine Besylate (Norvasc) 10 mg DAILY ORAL 05/24/18 09:00 06/23/18 08:59 05/24/18 08:34 Ciprofloxacin 200 ml @ 200 mls/hr Q12HR IVPB 05/24/18 09:00 05/31/18 08:59 Dextrose (Dextrose 50%) 25 ml Q30M PRN IV Hypoglycemia 05/23/18 23:15 06/22/18 23:14 Dextrose (Dextrose 50%) 50 ml Q30M PRN IV Hypoglycemia 05/23/18 23:15 06/22/18 23:14 Dextrose/ Electrolytes 1,000 ml @ 125 mls/hr Q8H IV 05/24/18 00:04 06/23/18 00:03 05/24/18 00:02 Levetiracetam (Keppra) 500 mg EVERY 12 HOURS ORAL 05/24/18 09:00 06/23/18 08:59 05/24/18 08:34 Metronidazole 100 ml @ 100 mls/hr Q8HR IVPB 05/24/18 06:00 05/31/18 05:59 05/24/18 05:49 Ondansetron HCl (Zofran) 4 mg Q4H PRN IVP Nausea & Vomiting 05/23/18 23:15 06/22/18 23:14 05/24/18 06:00 Pantoprazole (Protonix) 40 mg DAILY IV 05/24/18 09:00 06/23/18 08:59 05/24/18 08:33 Prochlorperazine (Compazine) 10 mg Q6H PRN IVP Nausea & Vomiting 05/23/18 23:15 06/22/18 23:14 05/24/18 08:34 Assessment/Plan Status: stable Assessment/Plan 47 year old male with PMH of HTn, epilepsy presented with complaints of nausea, vomiting and diarrhea x 3 day admitted for gastroenteritis #Vomiting and diarrhea likley 2/2 infectious Gastroenteritis -cont flagyl and cipro -IV hydration -Zofran PRN -f/u stool studies -ID consult appreciated #SARAH likely 2/2 dehydration #Hypokalemia #Hypomag -Hydration -CTM -Avoid renal toxic medications -replete electrolytes PRN -Renal consult appreciated I spent 75 min on this patients care, and 40 min was dedicated to counseling and /or care coordination Maru Gibbs MD May 24, 2018 08:41
[2018-05-24] MEDS ORDERED: Cyclobenzaprine 10mg Tab ORAL PRN (09:00)
[2018-05-24] MEDS ORDERED: HydrALAZINE 50mg tab ORAL SCH ×3 (09:00→21:00)
[2018-05-24] MEDS ORDERED: Pantoprazole Inj IV SCH (09:00)
--- NOTE | 2018-05-24 09:36 | NUR ---
CASE MANAGEMENT:REVIEW 47 YR OLD MALE FROM HOME CC: VOMITING AND ABDOMINAL PAIN SINCE MONDAY SI: SEPSIS.N/V/D 98.2 104 18 143/82 96% ON RA WBC+19.0 K-2.8 GLUCOSE+119 URINE(+) THC IS: 1L NS BOLUS X1 IV PEPCID X1 IV CIPRO X1 : TO MED/SURG [facility]
[2018-05-24 12:00] VITALS: BP 122/84
--- NOTE | 2018-05-24 12:49 | Infectious Diseases Prog Note ---
Assessment/Plan Assessment/Plan Full consult dictated: A) 1) n/v, abdominal pain, ? sepsis, leukocytosis, no fevers, ? viral gastroenteritis, ? infectious diarrhea/c.diff. 2) AVM hx, hx sz 3) allergies - morphine P) 1) cipro and flagyl 2) iv fluids 3) f/u on stool studies and labs 4) thank you Subjective Allergies: Coded Allergies: MORPHINE (Verified Allergy, Unknown, 11/13/16) Objective Vital Signs Last 24 Hour Vital Signs Date Time Temp Pulse Resp B/P (MAP) Pulse Ox O2 Delivery O2 Flow Rate FiO2 05/24/18 12:00 97.4 67 18 122/84 (97) 97 05/24/18 11:35 136/76 05/24/18 09:00 Room Air 05/24/18 08:34 72 136/76 05/24/18 08:00 98.3 72 18 136/76 (96) 98 05/24/18 06:00 98.2 73 18 141/78 (99) 96 05/24/18 00:00 98.4 68 18 121/72 (88) 95 05/23/18 21:51 Room Air 05/23/18 21:37 98.0 81 17 127/78 98 Room Air 05/23/18 21:30 98.0 81 17 127/78 98 Room Air 05/23/18 18:00 97 21 Room Air 05/23/18 18:00 98.2 98 18 133/82 96 Room Air 05/23/18 17:33 98.2 104 18 143/82 96 Room Air Height (Feet): 6 Height (Inches): 1.00 Weight (Pounds): 275 Laboratory Tests Test 05/23/18 18:15 05/23/18 19:40 05/24/18 06:26 White Blood Count 19.0 K/UL (4.8-10.8) H 12.7 K/UL (4.8-10.8) H Red Blood Count 5.52 M/UL (4.70-6.10) 5.39 M/UL (4.70-6.10) Hemoglobin 16.0 G/DL (14.2-18.0) 15.5 G/DL (14.2-18.0) Hematocrit 47.3 % (42.0-52.0) 45.9 % (42.0-52.0) Mean Corpuscular Volume 86 FL (80-99) 85 FL (80-99) Mean Corpuscular Hemoglobin 29.0 PG (27.0-31.0) 28.7 PG (27.0-31.0) Mean Corpuscular Hemoglobin Concent 33.9 G/DL (32.0-36.0) 33.7 G/DL (32.0-36.0) Red Cell Distribution Width 11.8 % (11.6-14.8) 12.2 % (11.6-14.8) Platelet Count 221 K/UL (150-450) 174 K/UL (150-450) Mean Platelet Volume 8.9 FL (6.5-10.1) 8.8 FL (6.5-10.1) Neutrophils (%) (Auto) % (45.0-75.0) 64.6 % (45.0-75.0) Lymphocytes (%) (Auto) % (20.0-45.0) 24.6 % (20.0-45.0) Monocytes (%) (Auto) % (1.0-10.0) 9.5 % (1.0-10.0) Eosinophils (%) (Auto) % (0.0-3.0) 0.1 % (0.0-3.0) Basophils (%) (Auto) % (0.0-2.0) 1.2 % (0.0-2.0) Differential Total Cells Counted 100 Neutrophils % (Manual) 83 % (45-75) H Lymphocytes % (Manual) 10 % (20-45) L Monocytes % (Manual) 7 % (1-10) Eosinophils % (Manual) 0 % (0-3) Basophils % (Manual) 0 % (0-2) Band Neutrophils 0 % (0-8) Reactive Lymphocytes 2+ Platelet Estimate Adequate Platelet Morphology Normal Polychromasia 1+ Anisocytosis 1+ Sodium Level 140 MMOL/L (136-145) 136 MMOL/L (136-145) Potassium Level 2.8 MMOL/L (3.5-5.1) L 3.1 MMOL/L (3.5-5.1) L Chloride Level 96 MMOL/L (98-107) L 101 MMOL/L (98-107) Carbon Dioxide Level 31 MMOL/L (21-32) 27 MMOL/L (21-32) Anion Gap 13 mmol/L (5-15) 8 mmol/L (5-15) Blood Urea Nitrogen 18 mg/dL (7-18) 17 mg/dL (7-18) Creatinine 1.4 MG/DL (0.55-1.30) H 1.4 MG/DL (0.55-1.30) H Estimat Glomerular Filtration Rate > 60 mL/min (>60) > 60 mL/min (>60) Glucose Level 119 MG/DL (74-106) H 159 MG/DL (74-106) H Calcium Level 9.4 MG/DL (8.5-10.1) 8.3 MG/DL (8.5-10.1) L Total Bilirubin 0.8 MG/DL (0.2-1.0) 0.7 MG/DL (0.2-1.0) Aspartate Amino Transf (AST/SGOT) 29 U/L (15-37) 26 U/L (15-37) Alanine Aminotransferase (ALT/SGPT) 59 U/L (12-78) 48 U/L (12-78) Alkaline Phosphatase 107 U/L (46-116) 91 U/L (46-116) Total Protein 8.0 G/DL (6.4-8.2) 6.8 G/DL (6.4-8.2) Albumin 4.3 G/DL (3.4-5.0) 3.4 G/DL (3.4-5.0) Globulin 3.7 g/dL 3.4 g/dL Albumin/Globulin Ratio 1.2 (1.0-2.7) 1.0 (1.0-2.7) Lipase 139 U/L (73-393) Urine Color Pale yellow Urine Appearance Clear Urine pH 7 (4.5-8.0) Urine Specific [place] 1.010 (1.005-1.035) Urine Protein 2+ (NEGATIVE) H Urine Glucose (UA) Negative (NEGATIVE) Urine Ketones 2+ (NEGATIVE) H Urine Blood Negative (NEGATIVE) Urine Nitrite Negative (NEGATIVE) Urine Bilirubin Negative (NEGATIVE) Urine Urobilinogen Normal MG/DL (0.0-1.0) Urine Leukocyte Esterase Negative (NEGATIVE) Urine RBC 0-2 /HPF (0 - 0) H Urine WBC 0-2 /HPF (0 - 0) Urine Squamous Epithelial Cells None /LPF (NONE/OCC) Urine Bacteria Few /HPF (NONE) Urine Opiates Screen Negative (NEGATIVE) Urine Barbiturates Screen Negative (NEGATIVE) Phencyclidine (PCP) Screen Negative (NEGATIVE) Urine Amphetamines Screen Negative (NEGATIVE) Urine Benzodiazepines Screen Negative (NEGATIVE) Urine Cocaine Screen Negative (NEGATIVE) Urine Marijuana (THC) Screen Positive (NEGATIVE) H Phosphorus Level 3.3 MG/DL (2.5-4.9) Magnesium Level 1.6 MG/DL (1.8-2.4) L Current Medications Medications (Trade) Dose Ordered Sig/Purvi Route PRN Reason Start Time Stop Time Status Last Admin Dose Admin Acetaminophen (Tylenol) 650 mg Q4H PRN ORAL Mild Pain (Pain Scale 1-3) 05/23/18 23:15 06/22/18 23:14 05/24/18 05:57 Amlodipine Besylate (Norvasc) 10 mg DAILY ORAL 05/24/18 09:00 06/23/18 08:59 05/24/18 08:34 Ciprofloxacin 200 ml @ 200 mls/hr Q12HR IVPB 05/24/18 09:00 05/31/18 08:59 05/24/18 09:29 Cyclobenzaprine HCl (Flexeril) 10 mg BIDPRN PRN ORAL Muscle Spasm 05/24/18 09:00 06/23/18 08:59 Dextrose (Dextrose 50%) 25 ml Q30M PRN IV Hypoglycemia 05/23/18 23:15 06/22/18 23:14 Dextrose (Dextrose 50%) 50 ml Q30M PRN IV Hypoglycemia 05/23/18 23:15 06/22/18 23:14 Dextrose/ Electrolytes 1,000 ml @ 125 mls/hr Q8H IV 05/24/18 00:04 06/23/18 00:03 05/24/18 09:03 Gabapentin (Neurontin) 400 mg TWICE A DAY ORAL 05/24/18 09:00 06/23/18 08:59 05/24/18 10:38 Hydralazine HCl (Apresoline) 100 mg Q12HR ORAL 05/24/18 10:34 06/23/18 10:33 05/24/18 11:35 Levetiracetam (Keppra) 500 mg EVERY 12 HOURS ORAL 05/24/18 09:00 06/23/18 08:59 05/24/18 08:34 Magnesium Sulfate 100 ml @ 100 mls/hr Q1H IVPB 05/24/18 09:45 05/24/18 13:44 05/24/18 11:35 Metronidazole 100 ml @ 100 mls/hr Q8HR IVPB 05/24/18 06:00 05/31/18 05:59 05/24/18 05:49 Ondansetron HCl (Zofran) 4 mg Q4H PRN IVP Nausea & Vomiting 05/23/18 23:15 06/22/18 23:14 05/24/18 06:00 Pantoprazole (Protonix) 40 mg DAILY IV 05/24/18 09:00 06/23/18 08:59 05/24/18 08:33 Potassium Chloride (K-Dur) 40 meq ONCE ORAL 05/24/18 12:30 05/24/18 13:30 Prochlorperazine (Compazine) 10 mg Q6H PRN IVP Nausea & Vomiting 05/23/18 23:15 06/22/18 23:14 05/24/18 08:34 Amauri Zhang MD May 24, 2018 12:49
[2018-05-24] MEDS ORDERED: Tubing IV Secondary IV ONE (14:51)
[2018-05-24] MEDS ORDERED: NS 110ml ONE (14:51)
[2018-05-24] MEDS ORDERED: D5 1/2NS 1000ml IV ONE (14:51)
--- NOTE | 2018-05-24 15:21 | Consultation ---
Consult Note Consult Note Asked to eval for renal failure- Patient presents with complaints of vomiting and diarrhea Reports that on Monday he had [place] food since then he has had chills with hot and fever type episodes Vomited several times Denies any diarrhea denies any chest pain or short of breath Also has increased burning and epigastric and mid esophageal area Denies any recent travel denies any other trauma patient's family member also had similar food however does not have any symptoms Allergies: MORPHINE (Verified Allergy, Unknown, 11/13/16) PH Hx Seizures: Yes , HTN , MJ abuse Interviewed examined data reviewed . Assessment/Plan Renal Failure / Dehydration Leukocytosis with GI Sxs likely infectious gastroenteritis HTN Sz disorder MJ abuse Hydrate- Per ID monitor renal parameters Electrolyte supplement as needed per orders Antonio Dubois MD May 24, 2018 15:21
[2018-05-24 16:00] VITALS: BP 115/73
--- NOTE | 2018-05-24 19:30 | NUR ---
NURSE NOTES: UNEVENTFUL DAY. PATIENT TOLERATING CLEAR LIQUIDS W/O ANTI-EMETICS GIVEN. NO N/V ON DAY SHIFT. VSS. AFEBRILE. CALL LIGHT WITHIN REACH.
--- NOTE | 2018-05-24 19:51 | NUR ---
HAND-OFF: Report given to MELIZA LICONA RN.
[2018-05-24 20:00] VITALS: BP 148/79
[2018-05-24] MEDS: Pantoprazole Inj IV SCH (21:04)
[2018-05-24] MEDS: HydrALAZINE 50mg tab ORAL SCH (22:25)
--- NOTE | 2018-05-24 23:55 | General Progress Note ---
Advance Care Planning Advance Care Planning Advance Care Planning [facility] An independent Hospitalist group, where every patient is our [facility] Internal Medicine Hospitalist Advanced Care Planning Note Please contact us at Date of Discussion: A [id number] discussion with the pt regarding the patient's advanced care planning took place during this hospitalization on the above date. The discussion included the explanation and discussion of advance directives and associated forms/documents, as well as the patient's current code status. We also discussed at length the patient's medical conditions (both acute and chronic), general prognosis, treatment options, and goals of care. The following summarizes the discussion: Advance Care Planning/Goals of Care: - Will attempt to fill out an AD and/or POLST with the patient prior to discharge, if not already completed - Continue current evaluation and management of any acute and chronic medical issues - Will continue to support the patient/family - Will continue to discuss both short- and long-term goals of care DPOA-HC/Surrogate Decision Maker: None currently appointed Code Status: Full Code Advanced Care Planning Forms/Documents Completed: Deferred until later encounter/visit A total of 17 minutes was spent on this discussion, including counseling, answering questions, and completing, if any, pertinent advanced care planning forms/documents. Time of note may not reflect time of encounter. Maru Gibbs MD May 24, 2018 23:54
[2018-05-25] VITALS: BP 146/88
[2018-05-25] MEDS: HydrALAZINE 50mg tab ORAL SCH ×2 (05:57→14:24)
[2018-05-25 07:15] LABS: BASOPHILS % (AUTO) 1.2 % (0.0-2.0); EOSINOPHILS % (AUTO) 0.8 % (0.0-3.0); HEMATOCRIT 43.7 % (42.0-52.0); HEMOGLOBIN 14.8 G/DL (14.2-18.0); LYMPHOCYTES % (AUTO) 34.7 % (20.0-45.0); MEAN CORPUSCULAR VOLUME 85 FL (80-99); MONOCYTES % (AUTO) 8.9 % (1.0-10.0); NEUTROPHILS % (AUTO) 54.5 % (45.0-75.0); PLATELET COUNT 189 K/UL (150-450); RED BLOOD COUNT 5.15 M/UL (4.70-6.10); RED CELL DISTRIBUTION WIDTH 11.8 % (11.6-14.8); WHITE BLOOD COUNT 11.9 K/UL (4.8-10.8)
--- NOTE | 2018-05-25 07:23 | NUR ---
HAND-OFF: Report given to ALEXANDRIA Oneill .
[2018-05-25 07:28] LABS: ALANINE AMINOTRANSFERASE 39 U/L (12-78); ALBUMIN 3.3 G/DL (3.4-5.0); ALBUMIN/GLOBULIN RATIO 1.1 (1.0-2.7); ALKALINE PHOSPHATASE 89 U/L (46-116); ANION GAP 5 mmol/L (5-15); ASPARTATE AMINO TRANSFERASE 16 U/L (15-37); BILIRUBIN,TOTAL 0.6 MG/DL (0.2-1.0); BLOOD UREA NITROGEN 11 mg/dL (7-18); CALCIUM 8.4 MG/DL (8.5-10.1); CARBON DIOXIDE 30 MMOL/L (21-32); CHLORIDE 105 MMOL/L (98-107); CHOLESTEROL 152 MG/DL (< 200); CREATININE 1.2 MG/DL (0.55-1.30); GAMMA GLUTAMYL TRANSPEPTIDASE 16 U/L (5-85); HDL CHOLESTEROL 37 MG/DL (40-60); PHOSPHORUS 3.8 MG/DL (2.5-4.9); POTASSIUM 3.5 MMOL/L (3.5-5.1); SODIUM 140 MMOL/L (136-145); TRIGLYCERIDES 60 MG/DL (30-150)
[2018-05-25 07:54] VITALS: BP 133/73
[2018-05-25] MEDS: Pantoprazole Inj IV SCH (08:39)
[2018-05-25 12:00] VITALS: BP 141/79
--- NOTE | 2018-05-25 12:30 | NUR ---
NURSE NOTES: PATIENT TOLERATED SOFT DIET. NO N/V NOTED. PASSING FLATUS. NO BM. SEEN BY BOTH SERVICES. OK TO DISCHARGE TODAY. PATIENT INFORMED.
--- NOTE | 2018-05-25 14:37 | Infectious Diseases Prog Note ---
Assessment/Plan Assessment/Plan Full consult dictated: A) 1) n/v, abdominal pain, ? sepsis, leukocytosis, no fevers, ? viral gastroenteritis, ? infectious diarrhea/c.diff. 2) AVM hx, hx sz 3) allergies - morphine 4) pmh noted P) 1) cipro and flagyl 2) iv fluids 3) f/u on stool studies and labs 4) clinically improved, can discharge from ID standpoint 5) communicated with Dr. Gibbs Subjective Constitutional: Denies: fever Respiratory: Denies: shortness of breath Cardiovascular: Denies: chest pain Gastrointestinal/Abdominal: Denies: nausea, vomiting, diarrhea Allergies: Coded Allergies: MORPHINE (Verified Allergy, Unknown, 11/13/16) Objective Vital Signs Last 24 Hour Vital Signs Date Time Temp Pulse Resp B/P (MAP) Pulse Ox O2 Delivery O2 Flow Rate FiO2 05/25/18 14:24 141/79 05/25/18 12:00 98.4 81 20 141/79 (99) 99 05/25/18 09:00 Room Air 05/25/18 08:38 67 133/73 05/25/18 07:54 98.0 67 18 133/73 (93) 97 05/25/18 05:57 146/88 05/25/18 00:00 97.8 62 18 146/88 (107) 96 05/24/18 22:25 148/79 05/24/18 21:00 Room Air 05/24/18 20:00 98.5 75 18 148/79 (102) 98 05/24/18 16:00 98.3 87 18 115/73 (87) 95 Height (Feet): 6 Height (Inches): 1.00 Weight (Pounds): 275 General Appearance: no acute distress HEENT: normocephalic, atraumatic, anicteric Respiratory/Chest: lungs clear, normal breath sounds, no respiratory distress Cardiovascular: normal rate, regular rhythm, no gallop/murmur, no JVD Abdomen: normal bowel sounds, soft, non tender, no organomegaly Laboratory Tests Test 05/25/18 06:00 White Blood Count 11.9 K/UL (4.8-10.8) H Red Blood Count 5.15 M/UL (4.70-6.10) Hemoglobin 14.8 G/DL (14.2-18.0) Hematocrit 43.7 % (42.0-52.0) Mean Corpuscular Volume 85 FL (80-99) Mean Corpuscular Hemoglobin 28.8 PG (27.0-31.0) Mean Corpuscular Hemoglobin Concent 34.0 G/DL (32.0-36.0) Red Cell Distribution Width 11.8 % (11.6-14.8) Platelet Count 189 K/UL (150-450) Mean Platelet Volume 9.7 FL (6.5-10.1) Neutrophils (%) (Auto) 54.5 % (45.0-75.0) Lymphocytes (%) (Auto) 34.7 % (20.0-45.0) Monocytes (%) (Auto) 8.9 % (1.0-10.0) Eosinophils (%) (Auto) 0.8 % (0.0-3.0) Basophils (%) (Auto) 1.2 % (0.0-2.0) Sodium Level 140 MMOL/L (136-145) Potassium Level 3.5 MMOL/L (3.5-5.1) Chloride Level 105 MMOL/L (98-107) Carbon Dioxide Level 30 MMOL/L (21-32) Anion Gap 5 mmol/L (5-15) Blood Urea Nitrogen 11 mg/dL (7-18) Creatinine 1.2 MG/DL (0.55-1.30) Estimat Glomerular Filtration Rate > 60 mL/min (>60) Glucose Level 106 MG/DL (74-106) Hemoglobin A1c 6.1 % (4.3-6.0) H Uric Acid 5.5 MG/DL (2.6-7.2) Calcium Level 8.4 MG/DL (8.5-10.1) L Phosphorus Level 3.8 MG/DL (2.5-4.9) Magnesium Level 2.0 MG/DL (1.8-2.4) Total Bilirubin 0.6 MG/DL (0.2-1.0) Gamma Glutamyl Transpeptidase 16 U/L (5-85) Aspartate Amino Transf (AST/SGOT) 16 U/L (15-37) Alanine Aminotransferase (ALT/SGPT) 39 U/L (12-78) Alkaline Phosphatase 89 U/L (46-116) Pro-B-Type Natriuretic Peptide 17 pg/mL (0-125) Total Protein 6.3 G/DL (6.4-8.2) L Albumin 3.3 G/DL (3.4-5.0) L Globulin 3.0 g/dL Albumin/Globulin Ratio 1.1 (1.0-2.7) Triglycerides Level 60 MG/DL (30-150) Cholesterol Level 152 MG/DL (< 200) LDL Cholesterol 106 mg/dL (<100) H HDL Cholesterol 37 MG/DL (40-60) L Cholesterol/HDL Ratio 4.1 (3.3-4.4) Thyroid Stimulating Hormone (TSH) 1.443 uiU/mL (0.358-3.740) Current Medications Medications (Trade) Dose Ordered Sig/Purvi Route PRN Reason Start Time Stop Time Status Last Admin Dose Admin Acetaminophen (Tylenol) 650 mg Q4H PRN ORAL Mild Pain (Pain Scale 1-3) 05/23/18 23:15 06/22/18 23:14 05/24/18 21:08 Amlodipine Besylate (Norvasc) 10 mg DAILY ORAL 05/25/18 09:00 06/23/18 08:59 05/25/18 08:38 Ciprofloxacin 200 ml @ 200 mls/hr Q12HR IVPB 05/24/18 09:00 05/31/18 08:59 05/25/18 08:40 Cyclobenzaprine HCl (Flexeril) 10 mg BIDPRN PRN ORAL Muscle Spasm 05/24/18 09:00 06/23/18 08:59 Dextrose (Dextrose 50%) 25 ml Q30M PRN IV Hypoglycemia 05/23/18 23:15 06/22/18 23:14 Dextrose (Dextrose 50%) 50 ml Q30M PRN IV Hypoglycemia 05/23/18 23:15 06/22/18 23:14 Gabapentin (Neurontin) 400 mg TWICE A DAY ORAL 05/24/18 09:00 06/23/18 08:59 05/25/18 08:38 Hydralazine HCl (Apresoline) 50 mg Q8HR ORAL 05/24/18 22:00 06/23/18 10:33 05/25/18 14:24 Levetiracetam (Keppra) 500 mg EVERY 12 HOURS ORAL 05/24/18 09:00 06/23/18 08:59 05/25/18 08:37 Metronidazole 100 ml @ 100 mls/hr Q8HR IVPB 05/24/18 06:00 05/31/18 05:59 05/25/18 14:24 Ondansetron HCl (Zofran) 4 mg Q4H PRN IVP Nausea & Vomiting 05/23/18 23:15 06/22/18 23:14 05/24/18 06:00 Pantoprazole (Protonix) 40 mg Q12HR IV 05/24/18 21:00 06/23/18 08:59 05/25/18 08:39 Sodium Chloride 1,000 ml @ 100 mls/hr Q10H IV 05/24/18 15:15 06/23/18 15:14 05/25/18 05:57 Amauri Zhang MD May 25, 2018 14:37
--- NOTE | 2018-05-25 14:41 | Nephrology Progress Note ---
Assessment/Plan Problem List: (1) Dehydration (2) Hypertensive heart disease (3) Nausea, vomiting, and diarrhea (4) Hypertension (5) Tetrahydrocannabinol (THC) use disorder, mild, abuse Assessment Renal Failure / Dehydration Leukocytosis with GI Sxs likely infectious gastroenteritis HTN Sz disorder MJ abuse Plan Hydrate- adjust BP meds Per ID monitor renal parameters Electrolyte supplement as needed per orders Subjective ROS Limited/Unobtainable: No Objective Objective Last 24 Hour Vital Signs Date Time Temp Pulse Resp B/P (MAP) Pulse Ox O2 Delivery O2 Flow Rate FiO2 05/25/18 14:24 141/79 05/25/18 12:00 98.4 81 20 141/79 (99) 99 05/25/18 09:00 Room Air 05/25/18 08:38 67 133/73 05/25/18 07:54 98.0 67 18 133/73 (93) 97 05/25/18 05:57 146/88 05/25/18 00:00 97.8 62 18 146/88 (107) 96 05/24/18 22:25 148/79 05/24/18 21:00 Room Air 05/24/18 20:00 98.5 75 18 148/79 (102) 98 05/24/18 16:00 98.3 87 18 115/73 (87) 95 Intake and Output 05/24/18 05/25/18 19:00 07:00 Intake Total 2315 ml 1100 ml Output Total 1450 ml 875 ml Balance 865 ml 225 ml Intake Oral 840 ml IV Total 1475 ml 1100 ml Output Urine Total 1450 ml 875 ml # Voids 1 Laboratory Tests 05/25/18 06:00: White Blood Count 11.9H, Red Blood Count 5.15, Hemoglobin 14.8, Hematocrit 43.7 , Mean Corpuscular Volume 85, Mean Corpuscular Hemoglobin 28.8, Mean Corpuscular Hemoglobin Concent 34.0, Red Cell Distribution Width 11.8, Platelet Count 189, Mean Platelet Volume 9.7, Neutrophils (%) (Auto) 54.5, Lymphocytes (% ) (Auto) 34.7, Monocytes (%) (Auto) 8.9, Eosinophils (%) (Auto) 0.8, Basophils ( %) (Auto) 1.2, Sodium Level 140, Potassium Level 3.5, Chloride Level 105, Carbon Dioxide Level 30, Anion Gap 5, Blood Urea Nitrogen 11, Creatinine 1.2, Estimat Glomerular Filtration Rate > 60, Glucose Level 106, Hemoglobin A1c 6.1H , Uric Acid 5.5, Calcium Level 8.4L, Phosphorus Level 3.8, Magnesium Level 2.0, Total Bilirubin 0.6, Gamma Glutamyl Transpeptidase 16, Aspartate Amino Transf ( AST/SGOT) 16, Alanine Aminotransferase (ALT/SGPT) 39, Alkaline Phosphatase 89, Pro-B-Type Natriuretic Peptide 17, Total Protein 6.3L, Albumin 3.3L, Globulin 3.0, Albumin/Globulin Ratio 1.1, Triglycerides Level 60, Cholesterol Level 152, LDL Cholesterol 106H, HDL Cholesterol 37L, Cholesterol/HDL Ratio 4.1, Thyroid Stimulating Hormone (TSH) 1.443 Height (Feet): 6 Height (Inches): 1.00 Weight (Pounds): 275 General Appearance: no apparent distress Cardiovascular: normal rate Respiratory/Chest: lungs clear Abdomen: soft, distended Antonio Dubois MD May 25, 2018 14:41
--- NOTE | 2018-05-25 14:56 | Discharge Instructions ---
Discharge Instructions Discharge Instructions Follow up with: PCP Call MD/Return to Hospital if: fevers >102, respiratory distress, worsening nausea and vomiting Diet: regular Resume Normal Activity?: Yes Activity: resume normal activities For Congestive Heart Failure Reminder Report to your physician any weight gain of 5 pounds or more in one week. Maru Gibbs MD May 25, 2018 14:56
[2018-05-25 16:00] VITALS: BP 133/62
[2018-05-25] MEDS ORDERED: Tubing IV Secondary IV ONE (16:59)
--- NOTE | 2018-05-25 17:00 | NUR ---
NURSE NOTES: DISCHARGE ORDER RECEIVED.DISCHARGE INSTRUCTIONS REVIEWED WITH PATIENT WITH EDUCATION OF DX PROVIDED. VERBALIZED UNDERSTANDING. PT. TO F/U WITH PCP IF NEEDED. ALL BELONGINGS WITH PATIENT. TRANSPORTED VIA WC. TO [facility] SAFELY.
--- NOTE | 2018-05-26 | Consultation ---
DATE OF CONSULTATION: 05/25/2018 INFECTIOUS DISEASE CONSULTATION CONSULTING PHYSICIAN: Amauri Zhang M.D. ATTENDING PHYSICIAN: Melinda Ramirez M.D. REFERRING PHYSICIAN: Maru Watt M.D. REASON FOR CONSULTATION: Possible sepsis, elevated white count, possible infectious diarrhea, possible viral gastroenteritis, leukocytosis. CHIEF COMPLAINT: The patient's chief complaint coming to the hospital is sepsis, nausea, vomiting, and diarrhea. HISTORY OF PRESENT ILLNESS: This is a very pleasant 47-year-old male who comes in to [facility] with nausea, vomiting, abdominal pain, also diarrhea, and abdominal discomfort. The patient did not have any fevers, however, he did have an elevated white count. The patient had these symptoms of nausea, vomiting, abdominal pain, and diarrhea for 3 days. The patient's white count on admission was 19.0. The patient's pulse rate is as high as 104. There was concern that the patient had early sepsis. The patient was admitted for also possible viral gastroenteritis versus infectious diarrhea. The patient was also admitted for possible C. difficile, however, he has not been on antibiotics prior to admission. Infectious Disease consultation was requested for antibiotic management. The patient has possible sepsis, elevated white count, and possible infectious diarrhea. The patient was placed on Cipro and Flagyl yesterday. I saw the patient yesterday and today. Today, he seemed to be clinically improved. Case was communicated Dr. Maru Watt, primary care physician following the patient. MAR was noted. Orders were noted. Notes were reviewed. REVIEW OF SYSTEMS: CONSTITUTIONAL: The patient has generalized fatigue, but no focal weakness. He feels better today than yesterday. No fever or chills. No weight loss or night sweats. HEAD AND NECK: No head pain or neck pain. No thrush or sinus tenderness. CARDIAC: No chest pain or palpitations. GASTROINTESTINAL: He came in with nausea, vomiting, abdominal pain, diarrhea; however, this is improved significantly. No diarrhea at this time. No nausea or vomiting. PULMONARY: No congestion, shortness of breath, hemoptysis, or secretions. SKIN: No rash or itching. EXTREMITIES: No extremity pain. NEUROLOGIC: No seizure activity. GENITOURINARY: No CVA tenderness. No Chatterjee. PAST MEDICAL HISTORY: The patient has past medical history of following. The patient has a past medical history of AV malformation or AVM. He has history of possible hypertension and also history of seizures per the record, so hypertension, seizures, and AVM. No history of diabetes. No history of cancer. ALLERGIES: Include morphine. SOCIAL HISTORY: Negative for smoking, alcohol, or drug abuse. FAMILY HISTORY: Noncontributory. Negative for tuberculosis exposure or cancer. MEDICATIONS: Upon reviewing the MAR, the patient is on the following medications. The patient is on pantoprazole, sodium chloride, Norvasc, Apresoline, Keppra, Cipro, Flagyl, cyclobenzaprine, gabapentin, metronidazole, acetaminophen, Zofran, IV fluids. Outside medications were noted and reconciliated. Prior to admission, his medication reconciliation list showed the following. It showed amlodipine, clonidine, Flexeril, famotidine. Diflucan, it looks like, not sure why he is on that. Gabapentin, hydralazine, hydrocodone, ibuprofen, losartan, naproxen, nystatin, Zofran, and ranitidine. PHYSICAL EXAMINATION: VITAL SIGNS: Temperature 98.4, pulse rate 81, respiratory rate 20, blood pressure 141/79, saturation 99%. Pulse rate has been as high as 104. GENERAL: Alert, responsive, in no acute distress. HEAD AND NECK: Oral exam, no thrush. Eye exam, no icterus. Neck is supple. No JVD. Normocephalic. HEART: Regular. No obvious gallop or murmur. ABDOMEN: Soft. Positive bowel sounds. Nontender. No rebound. LUNGS: Clear bilaterally. No rhonchi or rales. SKIN: No rash. MUSCULOSKELETAL: No evidence of septic arthritis. No effusion. Legs are without cellulitis. PERIPHERAL VASCULAR: No cyanosis. No gangrene. GENITOURINARY: No Chatterjee. LINES: Line sites without phlebitis. NEUROLOGIC: Intact. Nonfocal. He is alert and oriented x3. LABORATORY DATA: Laboratory data as follows. Creatinine 1.2. LFTs noted. White count on admission 19.0. Today's white count 11.9. Hemoglobin 14.8. Yesterday's white count 12.7. UA was leukocyte esterase negative. Stool studies were never done. He does not have diarrhea currently. No blood culture done. No fevers. Imaging studies not done. ASSESSMENT AND PLAN: 1. The patient came in with nausea, vomiting, abdominal pain with elevated white count, tachycardia, rule out underlying sepsis. Differential diagnoses include infectious diarrhea versus viral gastroenteritis. The patient currently does not have diarrhea. The patient is currently on Cipro and Flagyl. I suspect positive leukocytosis from the nausea, vomiting, and dehydration. He has had no fevers. The patient currently again is on Cipro and Flagyl. I communicated the case with Maru Watt MD. At this time, I suspect most leukocytosis is from dehydration and can consider stopping antibiotics since the patient's diarrhea is resolved almost immediately and no more nausea or vomiting. Discontinue Cipro and Flagyl. Monitor off antibiotics. Otherwise stable from ID standpoint. Follow up on labs and stool studies if done. Again, case was communicated with Dr. Maru Watt. 2. Possible sepsis, SIRS criteria, elevated white count, improved. Again, possibly secondary to dehydration versus infection such as infectious diarrhea. 3. AVM history. 4. Hypertension. 5. Seizures. 6. Blood pressure treatment per primary. 7. IV fluid hydration for dehydration. 8. He came in with hypokalemia. 9. Allergy to morphine. 10. Social history is negative. 11. Family history noncontributory. 12. MAR was noted. 13. Continue treatment per primary consultants. 14. Case was communicated with Dr. Maru Watt. 15. Orders were noted and entered. 16. Case also discussed with the patient and the RN. Amauri Zhang M.D. DR: [place] JOB#: [id number] CC:
--- NOTE | 2018-05-26 01:34 | Discharge Summary ---
Discharge Summary Hospital Course Date of Admission May 23, 2018 at 19:31 Date of Discharge May 25, 2018 at 17:00 Admitting Diagnosis sepsis, vomiting Reason for Hospitalization: intractable vomiting with electrolyte abnormalities HPI Taiwo Alatorre is a 47 year old male who was admitted on May 23, 2018 at 19:31 for Sepsis/Vomiting Consultations nephrology and ID Hospital Course 47 year old male with PMH of HTN, epilepsy presented with complaints of nausea, vomiting and diarrhea x 3 day admitted for gastroenteritis. Pt started on flagyl and cipro, symptoms resolved with zofran and bowel rest. Pt also noted to have SARAH with electrolyte abnormalities, renal function improved with IV hydration and electrolytes repleted. Pts symptoms resolved, afebrile, gastroenteritis likely 2/2 to viral therefore antibiotics was discontinued. Pt started on liquid diet and advanced to full diet, tolerating well. On discharge , pt ambulating with a stable gait, tolerating PO diet and ambulating with a stable gait. Physical exam prior to discharge General Appearance: WD/WN, no apparent distress, alert Lines, tubes and drains: peripheral HEENT: normocephalic, atraumatic, anicteric, mucous membranes moist Neck: non-tender, normal alignment, supple Respiratory/Chest: chest wall non-tender, lungs clear, normal breath sounds, no respiratory distress, no accessory muscle use Cardiovascular/Chest: normal peripheral pulses, normal rate, regular rhythm, no gallop/murmur Abdomen: normal bowel sounds, non tender, soft, no organomegaly Extremities: normal range of motion, non-tender, normal inspection, no calf tenderness Skin Exam: normal pigmentation Neurologic: blow machine tender starch spraying II-XII grossly normal Musculoskeletal: normal muscle bulk 35 min spent on care coordination and discharge planning Discharge Discharge Disposition Patient was discharged to Home (01) Discharge Diagnoses: (1) Abdominal pain of unknown etiology (2) Nausea, vomiting, and diarrhea (3) Acute renal insufficiency (4) Abdominal pain of unknown etiology (5) Dehydration (6) Cyclic vomiting syndrome (7) Gastroenteritis (8) Leukocytosis Discharge Instructions Discharge Instructions Follow up with: PCP Call MD/Return to Hospital if: fevers >102, respiratory distress, worsening nausea and vomiting Activity: resume normal activities Maru Gibbs MD May 26, 2018 01:34
== END 2018-05-25 17:00 | disposition home or self-care (01) | DRG 392 ==
LOC: EMR 17:50 → EDBEDREQ 19:00 → 3E 19:31 → EDBEDREQ 20:58
DX: A08.4 Viral intestinal infection, unspecified (principal); N17.9 Acute kidney failure, unspecified; E87.6 Hypokalemia; E83.42 Hypomagnesemia; E86.0 Dehydration; R10.9 Unspecified abdominal pain; G43.A0 Cyclical vomiting, in migraine, not intractable; Z88.6 Allergy status to analgesic agent; I11.9 Hypertensive heart disease without heart failure; F12.19 Cannabis abuse with unspecified cannabis-induced disorder; G40.909 Epilepsy, unspecified, not intractable, without status epilepticus
CPT/HCPCS: 36415; 80053; 80061; 80299; 80307; 81003; 82977; 83036; 83690; 83735; 83880; 84100; 84443; 84550; 85007; 85025; 86140; 96361; 96374; 96375; 99285; J2405; J8499